=== PATIENT | male | born 1975 | race Asian ===

== ENCOUNTER 2017-06-18 20:37 | Emergency (ER) | payer SELFPAY ==
[~2017-06-18] VITALS: Ht 170.2 cm; Wt 105.0 kg
[~2017-06-18 20:37] MED LIST: ACET500C5 PO
[2017-06-18 20:42] VITALS: Ht 170.2 cm; Wt 105.0 kg
== END 2017-06-19 02:04 | disposition left against medical advice (07) ==
LOC: E/R 20:37
DX: Z53.21 Procedure and treatment not carried out due to patient leaving prior to being seen by health care provider (principal)
CPT/HCPCS: 99281